=== PATIENT | female | born 1955 | race Caucasian/White ===

== ENCOUNTER 2022-04-23 06:20 | Day surgery (SDC) | payer OTHER ==
[~2022-04-23] VITALS: Ht 152.4 cm; Wt 56.2 kg
== END 2022-04-23 12:45 | disposition home or self-care (01) ==
LOC: CIR.AMB 06:20
PROVIDERS: ATTEND Colon & Rectal Surgery
DX: R15.9 Full incontinence of feces (principal); K58.0 Irritable bowel syndrome with diarrhea; Z88.0 Allergy status to penicillin; Z20.822 Contact with and (suspected) exposure to COVID-19; K21.9 Gastro-esophageal reflux disease without esophagitis